=== PATIENT | male | born 1965 | race Hispanic/Latino ===

== ENCOUNTER 2017-01-20 10:54 | Day surgery (SDC) | payer MEDICARE, MEDICAID ==
[2017-01-09 10:52] VITALS: BMI 24.4
[2017-01-20] MEDS ORDERED: Propofol 10 mg/ml Inj (20 ML) ONE (13:13)
[2017-01-20] MEDS ORDERED: Midazolam 2 MG/2 ML VIAL ONE (13:14)
[2017-01-20] MEDS ORDERED: cefTRIAXone (Rocephin) 1 gm Inj ONE (13:17)
[2017-01-20] MEDS ORDERED: Lactated Ringer's 1,000 ML IV SCH (14:08)
[2017-01-20] MEDS ORDERED: HYDROmorphone 0.5 mg/0.5 ml ISec IVP PRN (14:08)
[2017-01-20] MEDS ORDERED: Dextrose 5%/0.45% NS 1,000 ML IV SCH (14:15)
[2017-01-20 17:50] VITALS: PULSE 81; RESP 20
[2017-01-20] MEDS ORDERED: ILOPERIDONE 8 MG PO SCH ×4 (18:00→21:45)
--- NOTE | 2017-01-20 18:40 | OP ---
PROCEDURE DATE: 01/20/2017 PREOPERATIVE DIAGNOSIS: Bladder tumor. POSTOPERATIVE DIAGNOSIS: Bladder tumor. PROCEDURE: Transurethral resection of bladder tumor. SURGEON: Mode Mccarty M.D. ANESTHESIA: LMA. DESCRIPTION OF OPERATION: After adequate LMA anesthesia was given, the patient was placed in lithoto my, prepped and draped in usual manner. A 22-Swedish cystoscope was initially introduced under direct vision. The patient had a previous radical prostatectomy. The bladder itself showed a broad based tumor that appeared high grade on the floor of the bladder on the left side over the trigone and not attached to the bladder neck. There was bullous inflammation around its base as well. It extended o lev a 5 cm area. I replaced a 22-Swedish cystoscope with a 26-Swedish continuous flow resectoscope and I resected the tumor, but not in its entirety since it appeared to be deeply invasive and was not am enable to complete resection, but I felt I had removed enough of it to get an adequate diagnostic spe cimen. The area resected was over 5 cm. It was vascular. All hemostasis was controlled. I could n ot see the left orifice; however, there was no hydronephrosis on the CAT scan. The right orifice was normal. The rest of the bladder looked normal. The chips were removed. Again, hemostasis was seen to be obtained with no evidence of irrigation running. The irrigant return was crystal clear. The resectoscope was removed and a 22 Swedish 3-way [place] was inserted with the through and through return ing being crystal clear. The patient was awakened and brought to recovery room in good condition. Mode Mccarty MD cc: [id number] TT: 01/20/2017 18:39:39 sd
[2017-01-21 09:23] VITALS: BP 126/81; TEMP 97.6; O2SAT 96
--- NOTE | 2017-03-14 10:44 | PN ---
POSTOPERATIVE NOTE DATE: 01/21/2017 The patient underwent a TUR of a bladder tumor. He will be discharged. We will follow up in the office for discussion of the pathology. He was given all his postop instructions. Mode Mccarty MD
== END 2017-01-21 12:36 | disposition home or self-care (01) ==
LOC: SDS 10:54 → 5RSO 15:20 → SDS 01-21 12:36
PROVIDERS: ATTEND Urology
DX: C67.9 Malignant neoplasm of bladder, unspecified (principal)
CPT/HCPCS: 52235; 88307; J0696; J1170; J1885; J2250; J2405; J2704; J3010; J7042; J7120 ×2

== ENCOUNTER 2017-05-28 16:08 | Inpatient (IN) | payer MEDICARE, MEDICAID ==
[2017-05-28 16:18] VITALS: BMI 21.2
[2017-05-28] MEDS ORDERED: Sodium Chloride 0.9% 500 ML IV STA (16:41)
--- NOTE | 2017-05-28 16:53 | RAD ---
HISTORY: abdominal pain COMPARISON: 03/04/2017 FINDINGS: LUNGS: No active pulmonary disease. PLEURA: No significant pleural effusion identified, no pneumothorax apparent. CARDIOVASCULAR: Normal. OSSEOUS STRUCTURES: No significant abnormalities. VISUALIZED UPPER ABDOMEN: Normal. OTHER FINDINGS: None. IMPRESSION: No active disease.
--- NOTE | 2017-05-28 17:10 | ED PDOC ---
"Arrival/HPI - General Chief Complaint: Abdominal Pain Time Seen by Provider: 05/28/17 16:23 Historian: Patient, Parent - History of Present Illness Narrative History of Present Illness (Text): 05/28/17 17:02 51yr old male presents today with a 1 week history of constipation and a 2 day history of achy abdominal pain. pt denies fever/chills. no cp or sob. pt with recent hx of 2 abdominal surgeries. pt with hx of prostate CA. pt has been taking miralax without being able to have bowel movement. pt sent in by GI (dr. thomas) for evaluation to r/o obstruction. Time/Duration: 1 week Symptom Onset: Gradual Symptom Course: Worsening Quality: Aching Past Medical History - Provider Review Nursing Documentation Reviewed: Yes - Travel History Have you recently traveled outside [place] w/in the past 3 mons?: No - Infectious Disease Hx of Infectious Diseases: None - Tetanus Immunization Tetanus Immunization: Unknown - Past Medical History Past Medical History: No Previous - Cardiac Hx Pacemaker: No - Pulmonary Hx Respiratory Disorders: No - Neurological Hx Paralysis: No - HEENT Hx HEENT Disorder: No - Renal Hx Renal Disorder: No - Endocrine/Metabolic Hx Endocrine Disorders: No - Hematological/Oncological Hx Blood Transfusions: No Hx Blood Transfusion Reaction: No - Integumentary Hx Dermatological Disorder: No - Musculoskeletal/Rheumatological Hx Musculoskeletal Disorders: No - Gastrointestinal Hx Gall Bladder Disease: Yes (s/p cholecystectomy) Hx Gastroesophageal Reflux: Yes - Genitourinary/Gynecological Hx Genitourinary Disorders: No Hx Reproductive Disorders: No - Psychiatric Hx Depression: Yes Hx Emotional Abuse: No Hx Physical Abuse: No Hx Substance Use: No - Surgical History Hx Cholecystectomy: Yes - Anesthesia Hx Anesthesia: Yes Hx Anesthesia Reactions: No Hx Malignant Hyperthermia: No - Suicidal Assessment Feels Threatened In Home Enviroment: No Family/Social History - Physician Review Nursing Documentation Reviewed: Yes Family/Social History: Unknown Family HX Smoking Status: Never Smoked Hx Alcohol Use: No Hx Substance Use: No Hx Substance Use Treatment: No Allergies/Home Meds Allergies/Adverse Reactions: Allergies No Known Allergies Allergy (Verified 11/19/12 15:29) Home Medications: Home Meds Medication Instructions Recorded Confirmed Sertraline [Zoloft] 100 mg PO BID 11/19/12 05/28/17 cloZAPine [Clozaril] 300 mg PO HS 01/09/17 05/28/17 Review of Systems - Review of Systems Constitutional: absent: Fatigue, Fevers Respiratory: absent: SOB, Cough Cardiovascular: absent: Chest Pain, Palpitations Gastrointestinal: Abdominal Pain, Constipation. absent: Diarrhea, Nausea, Vomiting Genitourinary Male: absent: Urinary Output Changes Musculoskeletal: absent: Arthralgias, Back Pain, Neck Pain Skin: absent: Rash, Pruritis Neurological: absent: Headache, Dizziness Psychiatric: absent: Anxiety, Depression Physical Exam Vital Signs Reviewed: Yes Vital Signs Temp Pulse Resp BP Pulse Ox 05/28/17 21:51 94 H 18 126/45 L 96 05/28/17 16:21 97.6 F 99 H 18 109/72 97 Temperature: Afebrile Blood Pressure: Normal Pulse: Regular Respiratory Rate: Normal Appearance: Positive for: Well-Appearing, Non-Toxic, Comfortable Pain Distress: None Mental Status: Positive for: Alert and Oriented X 3 - Systems Exam Head: Present: Atraumatic Mouth: Present: Moist Mucous Membranes Neck: Present: Normal Range of Motion Respiratory/Chest: Present: Clear to Auscultation, Good Air Exchange. No: Respiratory Distress, Accessory Muscle Use Cardiovascular: Present: Regular Rate and Rhythm Abdomen: Present: Tenderness, Normal Bowel Sounds, Ostomy Tubes (urostomy), Scars. No: Peritoneal Signs, Rebound, Guarding Back: Present: Normal Inspection. No: CVA Tenderness Neurological: Present: GCS=15 Skin: Present: Warm, Dry, Normal Color. No: Rashes Psychiatric: Present: Alert, Oriented x 3 Medical Decision Making ED Course and Treatment: 05/28/17 17:13 Patient is nontoxic well appearing with stable vital signs presenting with abdominal pain and constipation CBC wnl CMP wnl Urinalysis trace blood CAT scanFINDINGS: LOWER THORAX: No infiltrate seen in the lung bases. ABDOMEN: LIVER: Multiple scattered, small low density liver lesions are seen, the largest of which measures 10 mm. These could represent multiple cysts, however, they are too small to characterize on this exam. GALLBLADDER AND BILE DUCTS: Although there is a reported history of cholecystectomy, the gallbladder is seen, and is within normal limits in appearance. No evidence of significant biliary ductal dilatation. PANCREAS: No CT evidence of acute pancreatitis. SPLEEN: No acute abnormality of the spleen identified. LOKI ROMERO | Final Radiology Report Page 2 of 3 ADRENALS: Stable appearance of an indeterminate, solid-appearing left adrenal mass, measuring 3.5 cm, and having well-defined margins. KIDNEYS AND URETERS: Moderate left hydronephrosis, with no evidence of significant hydroureter, obstructing stones, or a delayed left nephrogram. This is of uncertain etiology. Incidental fluid density bilateral renal lesions, measuring less than 10 mm. No further followup imaging is recommended for incidental lesions of this size, unless otherwise clinically indicated. STOMACH AND BOWEL: Proximal sigmoid colon is diffusely stool-filled, and is moderately dilated. Its wall is mildly thickened. There is infiltration of the adjacent fat. There is a small amount of nearby free fluid. Findings are suspicious for stercoral colitis. The remainder of the colon and is also filled with stool, and mildly, diffusely dilated dilated. Best seen on images 72-95 series 602, there is focal asymmetric wall thickening of the sigmoid colon,, causing mild narrowing of the colon. This is located just distal to the dilated and stool-filled sigmoid colon. Findings are suspicious for a stricture of the colon, causing an incomplete colonic obstruction dilatation. There is no evidence of a complete colonic obstruction. There is air and stool seen distal to the suspected stricture. Ileostomy is seen in the right anterior abdominal wall. Otherwise, no significant abnormality of the bowel is identified. No evidence of small bowel obstruction. APPENDIX: Normal appendix is not seen, however, there are no significant inflammatory changes visualized in the expected location of the appendix to suggest appendicitis. Recommend clinical correlation. PELVIS: BLADDER: Bladder is surgically absent. REPRODUCTIVE: No acute abnormality of the reproductive organs is seen. ABDOMEN and PELVIS: INTRAPERITONEAL SPACE: Small to moderate amount of pelvic free fluid. Ileal conduit is seen in the upper pelvis. No evidence of free air. No evidence of free air. BONES/JOINTS: No acute fractures or other acute bony abnormality noted. SOFT TISSUES: Bilateral gynecomastia. Post operative scarring involving the anterior abdominal and pelvic wall, most likely secondary to previous hernia repair. VASCULATURE: No evidence of abdominal aortic aneurysm. No evidence of periaortic hemorrhage. LYMPH NODES: No evidence of diffuse lymphadenopathy. IMPRESSION: - Findings suspicious for a stricture of the sigmoid colon, causing an incomplete colonic obstruction, complicated by stercoral colitis of the sigmoid colon. Neoplasm of the colon, including a metastatic colonic implant, is not excluded. Further workup is recommended. - Pelvic free fluid. - Moderate left hydronephrosis, cause not identified. - Otherwise, no evidence of significant acute process. - Evidence of prior cystectomy and ileal conduit formation, and ileostomy. - 3.5 cm left adrenal lesion. This is indeterminate on this exam, but appears stable from a 01/05/2017 CT. - Multiple small liver lesions, possibly cysts, but too small to characterize on this exam. - See above for remaining findings. blood cultures pending pt started on vanco and zosyn 05/28/17 22:[address] abraham; she would like dr. Colón for surgery. case discussed with dr. higgins and dr. Colón in depth; discussed ct findings of stercoral colitis and colonic stricture and incomplete obstruction. dr. Colón at bedside evaluating patient. Patient reassessment: pt resting comfortably in er. Discussed all results with patient and family in depth. Impression: stercoral colitis, stricture of colon, colonic obstruction admit to med/surg with surgical consult. dr. colón. - Lab Interpretations Lab Results: 05/28/17 17:10 05/28/17 17:10 Lab Results 05/28/17 22:15: Blood Type Pending, Antibody Screen Pending, BBK History Checked No verified bt 05/28/17 22:15: PT 11.4, INR 1.06, APTT 26.2 05/28/17 21:42: Urine Color Yellow, Urine Appearance Clear, Urine pH 7.0, Ur Specific Emerson 1.010, Urine Protein Negative, Urine Glucose (UA) Negative, Urine Ketones Negative, Urine Blood Trace-intact H, Urine Nitrate Negative, Urine Bilirubin Negative, Urine Urobilinogen 0.2, Ur Leukocyte Esterase Negative , Urine RBC 0 - 2, Urine WBC 2 - 5, Urine Bacteria Trace 05/28/17 17:10: WBC 7.9, RBC 4.62, Hgb 13.8 L, Hct 40.7 L, MCV 88.1, MCH 29.9, MCHC 33.9, RDW 15.0 H, Plt Count 282, MPV 8.7, Gran % 73.7 H, Lymph % (Auto) 16.6 L, [place] % (Auto) 7.0 H, Eos % (Auto) 2.4, Baso % (Auto) 0.3, Gran # 5.82, Lymph # 1.3, [place] # 0.6, Eos # 0.2, Baso # 0.02 05/28/17 17:10: Sodium 144, Potassium 4.3, Chloride 109 H, Carbon Dioxide 25, Anion Gap 14, BUN 21, Creatinine 0.7, Est GFR ( Amer) > 60, Est GFR (Non- Af Amer) > 60, Random Glucose 89, Calcium 9.3, Total Bilirubin 0.5, AST 22, ALT 25, Alkaline Phosphatase 83, Total Protein 6.5, Albumin 4.0, Globulin 2.5, Albumin/Globulin Ratio 1.6, Lipase 47 - RAD Interpretation Radiology Orders: 05/28/17 16:41 CHEST PORTABLE [RAD] Stat 05/28/17 16:45 ABD PELVIS PO & IV CONTRAST [CT] Stat - Medication Orders Current Medication Orders: Acetaminophen (Tylenol 325mg Tab) 650 mg PO Q6H PRN PRN Reason: Fever >100.4 F Sodium Chloride (Sodium Chloride 0.9%) 1,000 mls @ 100 mls/hr IV .Q10H SUNNY Last Admin: 05/29/17 00:44 Dose: 100 mls/hr eMAR Start Stop Document 05/29/17 00:44 PCO (Rec: 05/29/17 00:44 PCO [id number]) Intravenous Solution Start Date 05/29/17 Start Time 00:44 End Date 05/29/17 End time 11:00 Total Infusion Time 616 Mineral Oil (Fleet Mineral Oil Enema) 135 ml RC Q8H SUNNY Stop: 05/29/17 13:01 Discontinued Medications Glycerin (Glycerin Adult Suppository) 1 sup RC ONCE ONE Stop: 05/29/17 00:47 Sodium Chloride (Sodium Chloride 0.9%) 500 mls @ 999 mls/hr IV .Q31M STA Stop: 05/28/17 17:11 Last Admin: 05/28/17 17:22 Dose: 999 mls/hr eMAR Start Stop Document 05/28/17 17:22 EQ (Rec: 05/28/17 17:23 EQ [id number]) Intravenous Solution Start Date 05/28/17 Start Time 17:23 Vancomycin HCl (Vancomycin 1gm) 1 gm in 250 mls @ 167 mls/hr IVPB STAT STA PRN Reason: Protocol Stop: 05/28/17 23:27 Last Admin: 05/28/17 22:30 Dose: 167 mls/hr eMAR Start Stop Document 05/28/17 22:30 JOL (Rec: 05/29/17 00:23 [id number] Intravenous Solution Start Date 05/28/17 Start Time 22:30 End Date 05/29/17 End time 00:01 Total Infusion Time 91 Piperacillin Sod/Tazobactam Sod (Zosyn 3.375 In Ns 100ml) 100 mls @ 200 mls/hr IVPB STAT STA PRN Reason: Protocol Stop: 05/28/17 22:27 Last Admin: 05/28/17 22:20 Dose: 200 mls/hr eMAR Start Stop Document 05/28/17 22:20 JOL (Rec: 05/28/17 22:20 [id number] Intravenous Solution Start Date 05/28/17 Start Time 22:20 End Date 05/28/17 End time 22:50 Total Infusion Time 30 Disposition/Present on Arrival - Present on Arrival Any Indicators Present on Arrival: No History of DVT/PE: No History of Uncontrolled Diabetes: No Urinary Catheter: No History of Decub. Ulcer: No History Surgical Site Infection Following: None - Disposition Have Diagnosis and Disposition been Completed?: Yes Diagnosis: Colonic stricture, Colitis, Colonic obstruction Disposition: HOSPITALIZED Disposition Time: 22:00 Patient Plan: Admission Patient Problems: Current Active Problems Problem Status Onset Colitis Acute Colonic obstruction Acute Colonic stricture Acute Condition: FAIR"
[2017-05-28 17:24] LABS: BASO # 0.02 K/mm3 (0.0-2.0); BASO % 0.3 % (0.0-3.0); EOS # 0.2 (0.0-0.7); EOS % 2.4 % (1.5-5.0); GRAN # 5.82 (1.4-6.5); GRAN % 73.7 % (50.0-68.0); HEMATOCRIT 40.7 % (42.0-52.0); LYMPH # 1.3 (1.2-3.4); LYMPH % 16.6 % (22.0-35.0); MEAN CELL VOLUME 88.1 fl (80.0-105.0); MEAN CORPUSCULAR HEMOGLOBIN 29.9 pg (25.0-35.0); MEAN CORPUSCULAR HGB CONC 33.9 g/dl (31.0-37.0); MEAN PLATELET VOLUME 8.7 fl (7.0-11.0); MONO # 0.6 (0.1-0.6); WHITE BLOOD COUNT 7.9 10^3/ul (4.5-11.0)
[2017-05-28 17:32] LABS: ALB/GLOB RATIO 1.6 (1.1-1.8); ALKALINE PHOSPHATASE 83 U/L (38-126); ALT/SGPT 25 U/L (7-56); AST/SGOT 22 U/L (17-59); BILIRUBIN,TOTAL 0.5 mg/dL (0.2-1.3); BLOOD UREA NITROGEN 21 mg/dL (7-21); CALCIUM 9.3 mg/dL (8.4-10.5); CARBON DIOXIDE 25 mmol/L (21-33); CHLORIDE 109 mmol/L (98-107); GFR AFRICAN-AMERICAN > 60; GLUCOSE,RANDOM 89 mg/dL (70-110); LIPASE 47 U/L (23-300); POTASSIUM 4.3 mmol/L (3.6-5.0); SODIUM 144 mmol/L (132-148); TOTAL PROTEIN 6.5 g/dL (5.8-8.3)
[2017-05-28] MEDS ORDERED: Iohexol 240 (50 ml) ONE (17:35)
[2017-05-28] MEDS ORDERED: Iohexol 350 MG/100 ML VIAL ONE (20:09)
--- NOTE | 2017-05-28 21:55 | CT ---
EXAM: CT Abdomen and Pelvis With Intravenous Contrast EXAM DATE/TIME: 05/28/2017 4:45 PM CLINICAL HISTORY: 51 years old, male; Pain; Abdominal pain; Generalized; Prior surgery; Surgery type: Cholecystectomy - small bowel SX - bladder SX TECHNIQUE: Axial computed tomography images of the abdomen and pelvis with intravenous contrast. All CT scans at this facility use one or more dose reduction techniques, viz.: automated exposure control; ma/kV adjustment per patient size (including targeted exams where dose is matched to indication; i.e. head); or iterative reconstruction technique. Coronal and sagittal reformatted images were created and reviewed. CONTRAST: 93 mL of OMNI 350 administered intravenously. COMPARISON: Prior CT abdomen and pelvis of 01/05/2017 FINDINGS: LOWER THORAX: No infiltrate seen in the lung bases. ABDOMEN: LIVER: Multiple scattered, small low density liver lesions are seen, the largest of which measures 10 mm. These could represent multiple cysts, however, they are too small to characterize on this exam. GALLBLADDER AND BILE DUCTS: Although there is a reported history of cholecystectomy, the gallbladder is seen, and is within normal limits in appearance. No evidence of significant biliary ductal dilatation. PANCREAS: No CT evidence of acute pancreatitis. SPLEEN: No acute abnormality of the spleen identified. ADRENALS: Stable appearance of an indeterminate, solid-appearing left adrenal mass, measuring 3.5 cm, and having well-defined margins. KIDNEYS AND URETERS: Moderate left hydronephrosis, with no evidence of significant hydroureter, obstructing stones, or a delayed left nephrogram. This is of uncertain etiology. Incidental fluid density bilateral renal lesions, measuring less than 10 mm. No further followup imaging is recommended for incidental lesions of this size, unless otherwise clinically indicated. STOMACH AND BOWEL: Proximal sigmoid colon is diffusely stool-filled, and is moderately dilated. Its wall is mildly thickened. There is infiltration of the adjacent fat. There is a small amount of nearby free fluid. Findings are suspicious for stercoral colitis. The remainder of the colon and is also filled with stool, and mildly, diffusely dilated dilated. Best seen on images 72-95 series 602, there is focal asymmetric wall thickening of the sigmoid colon,, causing mild narrowing of the colon. This is located just distal to the dilated and stool-filled sigmoid colon. Findings are suspicious for a stricture of the colon, causing an incomplete colonic obstruction dilatation. There is no evidence of a complete colonic obstruction. There is air and stool seen distal to the suspected stricture. Ileostomy is seen in the right anterior abdominal wall. Otherwise, no significant abnormality of the bowel is identified. No evidence of small bowel obstruction. APPENDIX: Normal appendix is not seen, however, there are no significant inflammatory changes visualized in the expected location of the appendix to suggest appendicitis. Recommend clinical correlation. PELVIS: BLADDER: Bladder is surgically absent. REPRODUCTIVE: No acute abnormality of the reproductive organs is seen. ABDOMEN and PELVIS: INTRAPERITONEAL SPACE: Small to moderate amount of pelvic free fluid. Ileal conduit is seen in the upper pelvis. No evidence of free air. No evidence of free air. BONES/JOINTS: No acute fractures or other acute bony abnormality noted. SOFT TISSUES: Bilateral gynecomastia. Post operative scarring involving the anterior abdominal and pelvic wall, most likely secondary to previous hernia repair. VASCULATURE: No evidence of abdominal aortic aneurysm. No evidence of periaortic hemorrhage. LYMPH NODES: No evidence of diffuse lymphadenopathy. IMPRESSION: - Findings suspicious for a stricture of the sigmoid colon, causing an incomplete colonic obstruction, complicated by stercoral colitis of the sigmoid colon. Neoplasm of the colon, including a metastatic colonic implant, is not excluded. Further workup is recommended. - Pelvic free fluid. - Moderate left hydronephrosis, cause not identified. - Otherwise, no evidence of significant acute process. - Evidence of prior cystectomy and ileal conduit formation, and ileostomy. - 3.5 cm left adrenal lesion. This is indeterminate on this exam, but appears stable from a 01/05/2017 CT. - Multiple small liver lesions, possibly cysts, but too small to characterize on this exam. - See above for remaining findings.
[2017-05-28] MEDS ORDERED: Vancomycin 1gm in NS 250ml 1 GM/250 ML BAG IVPB STA (21:58)
[2017-05-28] MEDS ORDERED: Piperacillin/Tazobact 3.375 gm 100 ML IVPB STA (21:58)
[2017-05-28 22:00] LABS: URINE BILIRUBIN NEGATIVE (NEGATIVE); URINE BLOOD TRACE-INTACT (NEGATIVE); URINE GLUCOSE (UA) NEGATIVE (NEGATIVE); URINE KETONE NEGATIVE (NEGATIVE); URINE LEUKOCYTE ESTERASE NEGATIVE Leu/uL (NEGATIVE); URINE PROTEIN NEGATIVE mg/dL (<30 mg/dL); URINE UROBILINOGEN 0.2 E.U./dL (<1 E.U./dL)
[2017-05-28 22:01] LABS: URINE APPEARANCE CLEAR (CLEAR); URINE COLOR YELLOW (YELLOW)
[2017-05-28 22:09] LABS: URINE BACTERIA TRACE (NEG); URINE RBC 0 - 2 /hpf (0-2)
[2017-05-28 22:41] LABS: INR 1.06 (0.93-1.08); PARTIAL THROMBOPLASTIN TIME 26.2 Seconds (23.7-30.8)
[2017-05-29] MEDS: Sodium Chloride 0.9% 1,000 ML IV SCH ×3 (00:44→21:50)
--- NOTE | 2017-05-29 00:59 | CP.PCM.CON ---
History of Present Illness - History of Present Illness History of Present Illness: 51M w/ a PMHx of prostate cancer, urinary bladder cancer, GERD, presents to the ED with complaints of constipation. Patient reports he has not had a bowel movement for the past week. As per patient, he deals with constipation on a regular basis, however, he usually has BM after aggressive laxative use. Patient states his PO laxatives were not making him have a BM and he began feeling some distension as well as LLQ tenderness and he decided to come to ED. At time of examination patient appeared comfortable and denied fever/chills, n/v /d. Patient reports passing flatus. Complains of LLQ discomfort. Patient manually disimpacted at bedside. Urostomy appears intact and functional. 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 1 week s/p urinary bladder resection (2017) Allergies: NKDA Soc Hx: Denies EtOH use, denies smoking Review of Systems - Review of Systems Review of Systems: 12 pt ROS reviewed, unremarkable, except as stated in HPI Past Patient History - Infectious Disease Hx of Infectious Diseases: None - Tetanus Immunizations Tetanus Immunization: Unknown - Past Social History Smoking Status: Never Smoked - CARDIAC Hx Pacemaker: No - PULMONARY Hx Respiratory Disorders: No - NEUROLOGICAL Hx Paralysis: No - HEENT Hx HEENT Problems: No - RENAL Hx Chronic Kidney Disease: No - ENDOCRINE/METABOLIC Hx Endocrine Disorders: No - HEMATOLOGICAL/ONCOLOGICAL Hx Blood Transfusions: No Hx Blood Transfusion Reaction: No - INTEGUMENTARY Hx Dermatological Problems: No - MUSCULOSKELETAL/RHEUMATOLOGICAL Hx Musculoskeletal Disorders: No - GASTROINTESTINAL Hx Gall Bladder Disease: Yes (s/p cholecystectomy) Hx Gastroesophageal Reflux: Yes - GENITOURINARY/GYNECOLOGICAL Hx Genitourinary Disorders: No Hx Reproductive Disorders: No - PSYCHIATRIC Hx Depression: Yes Hx Emotional Abuse: No Hx Physical Abuse: No Hx Substance Use: No - SURGICAL HISTORY Hx Cholecystectomy: Yes - ANESTHESIA Hx Anesthesia: Yes Hx Anesthesia Reactions: No Hx Malignant Hyperthermia: No Meds Allergies/Adverse Reactions: Allergies Allergy/AdvReac Type Severity Reaction Status Date / Time No Known Allergies Allergy Verified 11/19/12 15:29 - Medications Medications: Current Medications Acetaminophen (Tylenol 325mg Tab) 650 mg PO Q6H PRN PRN Reason: Fever >100.4 F Sodium Chloride (Sodium Chloride 0.9%) 1,000 mls @ 100 mls/hr IV .Q10H [facility] Last Admin: 05/29/17 00:44 Dose: 100 mls/hr Mineral Oil (Fleet Mineral Oil Enema) 135 ml RC Q8H [facility] Stop: 05/29/17 13:01 Physical Exam - Constitutional Appears: No Acute Distress - Head Exam Head Exam: NORMOCEPHALIC - Eye Exam Eye Exam: Normal appearance - ENT Exam ENT Exam: Mucous Membranes Moist - Respiratory Exam Respiratory Exam: NORMAL BREATHING PATTERN - Cardiovascular Exam Cardiovascular Exam: +S1, +S2 - GI/Abdominal Exam GI & Abdominal Exam: Distended, Soft, Tenderness. absent: Firm, Guarding Additional comments: LLQ tenderness - Neurological Exam Neurological exam: Alert, Oriented x3 - Psychiatric Exam Psychiatric exam: Normal Mood - Skin Skin Exam: Dry, Intact, Warm Results - Vital Signs Recent Vital Signs: Last Vital Signs Temp 97.6 F 05/28/17 16:21 Pulse 94 H 05/28/17 21:51 Resp 18 05/28/17 21:51 BP 126/45 L 05/28/17 21:51 Pulse Ox 96 05/28/17 21:51 - Labs Result Diagrams: 05/28/17 17:10 05/28/17 17:10 - Imaging and Cardiology CT scan - abdomen Status: Image reviewed by me Assessment & Plan - Assessment and Plan (Free Text) Assessment: 51M w/ severe constipation -Manual fecal disimpaction -Tap water enemas -Glycerin enemas -Serial abdominal exams -Monitor for BM -Monitor vitals -DVT ppx -D/w Dr. Jordan Joe PGY-2
[2017-05-29] MEDS: Mineral Oil Enema 135 ml RC SCH ×2 (06:09→14:09)
--- NOTE | 2017-05-29 16:41 | CP.PCM.CON ---
<Corinne Rand - Last Filed: 05/29/17 19:36> History of Present Illness - History of Present Illness History of Present Illness: Seen and examined a t bedside, earlier today, chart reviewed. Request for GI consult is for colon obstruction/sterocolitis/sigmoid stricture. HPI: This is a 51-year-old male with a past medical history of urinary bladder and prostate cancer, GERD, chronic constipation came to the emergency room with complaints of unable to have a bowel movement for the past week. The patient reports that after aggressive laxative treatment he usually has BM. The patient has been taking oral laxatives as no result. He complained of abdominal distention and left lower quadrant tenderness. The patient denies any nausea, vomiting, fever or chills. No reports of any overt GI bleed. The patient reports passing flatus. The patient has a right-sided urostomy which is draining yellow urine. The patient was disimpacted by surgery earlier this am. He was also given enemas/gylcerin and reports having bowel movement this morning, no blood noted. He was seen in our outpatient office about a week ago , he has been using Colace, MiraLAX and at one point taking magnesium citrate. Has loss colonoscopy was about 3 or 4 years ago he does not recall any acute findings. On admission he had a CT scan of abdomen and pelvis which reported sterocoral colitis, stricture in the sigmoid colon causing incomplete obstruction. 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 Allergies: No known drug allergies Medications: Reviewed as per MAR Family history: Noncontributory Social history: Denies tobacco use, EtOH or substance abuse Past Patient History - Infectious Disease Hx of Infectious Diseases: None - Tetanus Immunizations Tetanus Immunization: Unknown - Past Social History Smoking Status: Never Smoked - CARDIAC Hx Pacemaker: No - PULMONARY Hx Respiratory Disorders: No - NEUROLOGICAL Hx Paralysis: No - HEENT Hx HEENT Problems: No - RENAL Hx Chronic Kidney Disease: No - ENDOCRINE/METABOLIC Hx Endocrine Disorders: No - HEMATOLOGICAL/ONCOLOGICAL Hx Blood Transfusions: No Hx Blood Transfusion Reaction: No - INTEGUMENTARY Hx Dermatological Problems: No - MUSCULOSKELETAL/RHEUMATOLOGICAL Hx Musculoskeletal Disorders: No - GASTROINTESTINAL Hx Gall Bladder Disease: Yes (s/p cholecystectomy) Hx Gastroesophageal Reflux: Yes - GENITOURINARY/GYNECOLOGICAL Hx Genitourinary Disorders: No Hx Reproductive Disorders: No - PSYCHIATRIC Hx Depression: Yes Hx Emotional Abuse: No Hx Physical Abuse: No Hx Substance Use: No - SURGICAL HISTORY Hx Cholecystectomy: Yes - ANESTHESIA Hx Anesthesia: Yes Hx Anesthesia Reactions: No Hx Malignant Hyperthermia: No Meds Allergies/Adverse Reactions: Allergies Allergy/AdvReac Type Severity Reaction Status Date / Time No Known Allergies Allergy Verified 11/19/12 15:29 - Medications Medications: Current Medications Acetaminophen (Tylenol 325mg Tab) 650 mg PO Q6H PRN PRN Reason: Fever >100.4 F Sodium Chloride (Sodium Chloride 0.9%) 1,000 mls @ 100 mls/hr IV .Q10H [facility] Last Admin: 05/29/17 10:45 Dose: 100 mls/hr Mineral Oil (Fleet Mineral Oil Enema) 135 ml RC Q8H [facility] Stop: 05/29/17 13:01 Last Admin: 05/29/17 06:09 Dose: 135 ml Physical Exam - Constitutional Appears: No Acute Distress - Head Exam Head Exam: NORMOCEPHALIC - Eye Exam Eye Exam: Normal appearance. absent: Scleral icterus - ENT Exam ENT Exam: Mucous Membranes Moist - Neck Exam Neck exam: Positive for: Normal Inspection - Respiratory Exam Respiratory Exam: NORMAL BREATHING PATTERN. absent: Respiratory Distress - Cardiovascular Exam Cardiovascular Exam: +S1, +S2 - GI/Abdominal Exam GI & Abdominal Exam: Diminished Bowel Sounds, Soft, Tenderness (LLQ). absent: Distended, Guarding, Rebound Additional comments: right sided urostomy in place, drain yellow urine, nontender - Neurological Exam Neurological exam: Alert, Oriented x3 - Skin Skin Exam: Dry, Warm Results - Vital Signs Recent Vital Signs: Last Vital Signs Temp 97.7 F 05/29/17 07:55 Pulse 95 H 05/29/17 07:55 Resp 18 05/29/17 07:55 BP 126/80 05/29/17 07:55 Pulse Ox 98 05/29/17 07:55 - Labs Result Diagrams: 05/28/17 17:10 05/28/17 17:10 Labs: Laboratory Results - last 24 hr 05/29/17 00:20 Blood Type Confirm AB NEGATIVE Assessment & Plan - Assessment and Plan (Free Text) Assessment: Assessment: Colonic obstruction/Sterile colitis secondary to sigmoid stricture causing incomplete obstruction evident on ct scan. 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 Seen and discussed with Dr. Greene. ADDENDUM: Miralax BID <Marian Greene V - Last Filed: 05/29/17 23:44> Meds - Medications Medications: Current Medications Acetaminophen (Tylenol 325mg Tab) 650 mg PO Q6H PRN PRN Reason: Fever >100.4 F Home Med (Home Med) 1 unit PO DAILY [facility] Home Med (Home Med) 3 unit PO HS [facility] Last Admin: 05/29/17 21:51 Dose: 3 unit Sodium Chloride (Sodium Chloride 0.9%) 1,000 mls @ 100 mls/hr IV .Q10H [facility] Last Admin: 05/29/17 21:50 Dose: 100 mls/hr Pantoprazole Sodium (Protonix Ec Tab) 40 mg PO 0630 [facility] Polyethylene Glycol (Miralax) 17 gm PO BID [facility] Sertraline HCl (Zoloft) 100 mg PO Q12 [facility] Last Admin: 05/29/17 21:51 Dose: 100 mg Sucralfate (Carafate Tab) 1 gm PO BID [facility] Last Admin: 05/29/17 18:56 Dose: Not Given Results - Vital Signs Recent Vital Signs: Last Vital Signs Temp 98 F 05/29/17 16:00 Pulse 87 05/29/17 16:00 Resp 18 05/29/17 16:00 BP 111/72 05/29/17 16:00 Pulse Ox 100 05/29/17 16:00 - Labs Result Diagrams: 05/28/17 17:10 05/28/17 17:10 Labs: Laboratory Results - last 24 hr 05/29/17 00:20 Blood Type Confirm AB NEGATIVE Attending/Attestation - Attestation Notes (Text): p 05/29/17 23:44
[2017-05-29] MEDS: CLOZARIL 100 MG PO SCH (21:51)
[2017-05-30] MEDS: Pantoprazole 40 mg EC Tab PO SCH (06:24)
--- NOTE | 2017-05-30 08:27 | CP.PCM.PN ---
Subjective - Date & Time of Evaluation Date of Evaluation: 05/30/17 Time of Evaluation: 08:26 - Subjective Subjective: General Surgery Progress Note for Dr. Ortega Patient seen and examiend at bedside. No acute event overnight. Patient resting in bed comfortably. He states he had two BMs yesterday but still has mild pain in LLQ. Tolerating diet and ambulating without dfficulty. Denies fever/chills, cp, sob, n/v/d. Objective - Vital Signs/Intake and Output Vital Signs (last 24 hours): Temp Pulse Resp BP Pulse Ox 98.4 F 86 18 116/79 100 05/30/17 00:00 05/30/17 00:00 05/30/17 00:00 05/30/17 00:00 05/30/17 00:00 Intake and Output: 05/30/17 05/30/17 06:59 18:59 Intake Total 3060 Output Total 1725 Balance 1335 - Medications Medications: Current Medications Acetaminophen (Tylenol 325mg Tab) 650 mg PO Q6H PRN PRN Reason: Fever >100.4 F Home Med (Home Med) 1 unit PO DAILY [facility] Home Med (Home Med) 3 unit PO HS [facility] Last Admin: 05/29/17 21:51 Dose: 3 unit Sodium Chloride (Sodium Chloride 0.9%) 1,000 mls @ 100 mls/hr IV .Q10H [facility] Last Admin: 05/29/17 21:50 Dose: 100 mls/hr Pantoprazole Sodium (Protonix Ec Tab) 40 mg PO 0630 [facility] Last Admin: 05/30/17 06:24 Dose: 40 mg Polyethylene Glycol (Miralax) 17 gm PO BID [facility] Sertraline HCl (Zoloft) 100 mg PO Q12 [facility] Last Admin: 05/29/17 21:51 Dose: 100 mg Sucralfate (Carafate Tab) 1 gm PO BID [facility] Last Admin: 05/29/17 18:56 Dose: Not Given - Labs Labs: PT 11.4 Seconds (9.9-11.8) 05/28/17 22:15 INR 1.06 (0.93-1.08) 05/28/17 22:15 APTT 26.2 Seconds (23.7-30.8) 05/28/17 22:15 - Constitutional Appears: No Acute Distress - Head Exam Head Exam: ATRAUMATIC, NORMOCEPHALIC - Eye Exam Eye Exam: Normal appearance - ENT Exam ENT Exam: Mucous Membranes Moist - Respiratory Exam Respiratory Exam: NORMAL BREATHING PATTERN - Cardiovascular Exam Cardiovascular Exam: REGULAR RHYTHM - GI/Abdominal Exam GI & Abdominal Exam: Soft, Tenderness (LLQ). absent: Distended, Firm, Guarding , Rigid, Rebound - Extremities Exam Extremities Exam: Normal Capillary Refill - Neurological Exam Neurological Exam: Alert, Awake, Oriented x3 - Psychiatric Exam Psychiatric exam: Normal Affect, Normal Mood - Skin Skin Exam: Dry, Intact, Normal Color, Warm Assessment and Plan - Assessment and Plan (Free Text) Plan: 51 M with severe constipation -ADAT -Continue enemas PRN -Monitor for BM -No surgical intervention at this time -DASIA Lambert PGY1
[2017-05-30] MEDS ORDERED: POLYETHYLENE GLYCOL 3350 17 GM/Dose PACKET PO SCH (10:00)
[2017-05-30] MEDS: CLOZARIL 100 MG PO SCH ×2 (11:20→22:30)
[2017-05-30] MEDS: POLYETHYLENE GLYCOL 3350 17 GM/Dose PACKET PO SCH ×2 (11:49→19:07)
--- NOTE | 2017-05-30 13:53 | PN ---
SUBJECTIVE: The patient is a 51 years old, seen and examined, lying in bed. He states he had small bowel movement, does not have that left lower quadrant discomfort much. Tolerating clear liquid diet. PHYSICAL EXAMINATION: VITAL SIGNS: He is afebrile, pulse 86, respiration 18, blood pressure 120/80. LUNGS: Bilateral fair airflow. No rhonchi or crackle. HEART: S1 and S2 audible. ABDOMEN: Soft, nontender. No rebound. No guarding. NEUROLOGIC: He is awake and alert, able to communicate. GENITOURINARY: He has a little conduit that he is draining clear urine. No hematuria. ASSESSMENT AND PLAN: 1. Constipation secondary to sigmoid stricture. 2. History of carcinoma bladder, status post cystectomy and conduit formation. 3. History of partial small-bowel resection. PLAN: Currently, the patient is on clear liquid diet. He is getting laxative. He has history of depression, he will resume his medication as he is taking at home. Plan is to have flexible sigmoidoscopy done on Thursday. Charli Izquierdo MD
[2017-05-30] MEDS: Sodium Chloride 0.9% 1,000 ML IV SCH (16:36)
[2017-05-31] MEDS: Sodium Chloride 0.9% 1,000 ML IV SCH ×2 (04:19→14:04)
[2017-05-31] MEDS: Pantoprazole 40 mg EC Tab PO SCH (08:10)
[2017-05-31] MEDS: POLYETHYLENE GLYCOL 3350 17 GM/Dose PACKET PO SCH ×2 (11:05→18:08)
[2017-05-31] MEDS: CLOZARIL 100 MG PO SCH ×2 (11:05→21:41)
[2017-06-01] MEDS: Sodium Chloride 0.9% 1,000 ML IV SCH ×2 (00:57→14:29)
[2017-06-01] MEDS: Pantoprazole 40 mg EC Tab PO SCH (06:32)
--- NOTE | 2017-06-01 09:40 | CON ---
DATE: 05/31/2017 HISTORY OF PRESENT ILLNESS: Mr. Montgomery is 51-year-old male with urinary bladder cancer, muscle invasive, underwent resection of the bladder with ileal conduit. He underwent also small bowel resection secondary to malnutrition of the gut one week after surgery. The patient was admitted to the hospital with chronic constipation, inability to pass stools. CAT scan of the abdomen is suspicious for stricture of the sigmoid colon. 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 He had colonoscopy 3 years ago. He is currently on liquid diet, tolerating it well. PAST MEDICAL HISTORY: Bladder cancer, depression, chronic constipation, GERD. PAST SURGICAL HISTORY: Bladder resection, small bowel resection. ALLERGIES: NO KNOWN DRUG ALLERGIES. FAMILY HISTORY: Noncontributory. No positive history on mother or father. SOCIAL HISTORY: No history of alcohol abuse. No history of tobacco use. REVIEW OF SYSTEMS: As per HPI. Rest of 12-point review of systems reviewed negative. PHYSICAL EXAMINATION GENERAL: Comfortable in bed, in no acute distress. VITAL SIGNS: Temperature 97.7, heart rate 95 per minute, respiratory 18 per minute, blood pressure 126/80, pulse ox 98% on room air. HEENT: Normal. No lymphadenopathy. CHEST: Air entry present, equal bilateral. No added sound. CARDIOVASCULAR: Exam within normal limit. ABDOMEN: Soft, nontender. No hepatosplenomegaly. EXTREMITIES: No edema. CENTRAL NERVOUS SYSTEM: Alert and oriented x3. No focal sensory or motor deficits. SKIN: No petechiae. No rash. LABORATORY DATA: White count 7.9, hemoglobin 13.8, hematocrit 40.7, platelet count 282. Sodium 144, potassium 4.3, BUN 21, creatinine 0.7, glucose 89. ASSESSMENT AND PLAN: 1. Bladder cancer. 2. Sigmoid colon stricture. 3. Gastroesophageal reflux disease. 4. Chronic constipation. 5. Prostate cancer. PLAN: He is followed by Dr. Greene. He is currently on liquid diet, tolerating it well. He is schedule for sigmoidoscopy tomorrow. Blood culture is negative. Mild anemia. Hemoglobin and hematocrit is stable. Continue Protonix. Continue Zoloft. He is currently on IV fluid at 100 mL an hour. We will continue that. CAT scan as per HPI, reviewed. Thank you Dr. Izquierdo for allowing me to participate in his care. We will continue to follow. Mayi Barrera MD
[2017-06-01] MEDS: CLOZARIL 100 MG PO SCH ×2 (11:04→21:39)
[2017-06-01] MEDS ORDERED: Iohexol 240 (50 ml) ONE (11:28)
--- NOTE | 2017-06-01 13:07 | PN ---
DATE: SUBJECTIVE: The patient is a 51-year-old seen and examined. No significant abdominal pain, was n.p.o. to have Gastrografin enema. PHYSICAL EXAMINATION: VITAL SIGNS: He is afebrile, pulse 70, respirations 20, blood pressure 102/64. LUNGS: Bilateral fair airflow. No rhonchi or crackles. HEART: S1 and S2 audible. ABDOMEN: Soft, nontender. No rebound. No guarding. Slight discomfort in the left lower quadrant area, but no rebound or guarding. LABORATORY DATA: Blood sugar is 87, blood cultures are negative. ASSESSMENT: 1. Abdominal discomfort. 2. History of carcinoma of the bladder status post total cystectomy and conduit formation. 3. Sigmoid colon stricture. 4. Chronic constipation. 5. History of carcinoma of the prostate. PLAN: The patient will have enema done today, and Dr. Greene has scheduled for sigmoidoscopy tomorrow. We will keep on clear liquid diet in the meantime. Charli Izquierdo MD
--- NOTE | 2017-06-01 13:15 | RAD ---
PROCEDURE: Barium enema single contrast HISTORY: sigmoid stricture s/p cystectomy COMPARISON: TECHNIQUE: Water-soluble contrast was utilized as requested. FINDINGS: There is no evidence of a sigmoid stricture. Contrast flows without obstruction. Contrast extends to the region of the hepatic flexure. Contrast did not reach the cecum. The patient was experiencing discomfort in the lower abdomen. IMPRESSION: No evidence of sigmoid stricture.
[2017-06-01] MEDS: POLYETHYLENE GLYCOL 3350 17 GM/Dose PACKET PO SCH ×2 (14:23→18:05)
[2017-06-02] MEDS ORDERED: Magnesium Citrate Oral SOL (300 ml) PO ONE (05:00)
[2017-06-02] MEDS: Sodium Chloride 0.9% 1,000 ML IV SCH ×2 (05:48→15:49)
[2017-06-02 07:18] LABS: BASO # 0.02 K/mm3 (0.0-2.0); BASO % 0.4 % (0.0-3.0); EOS # 0.3 (0.0-0.7); EOS % 6.4 % (1.5-5.0); GRAN # 2.37 (1.4-6.5); GRAN % 52.7 % (50.0-68.0); HEMATOCRIT 37.7 % (42.0-52.0); LYMPH # 1.4 (1.2-3.4); LYMPH % 31.6 % (22.0-35.0); MEAN CELL VOLUME 88.1 fl (80.0-105.0); MEAN CORPUSCULAR HEMOGLOBIN 29.2 pg (25.0-35.0); MEAN CORPUSCULAR HGB CONC 33.2 g/dl (31.0-37.0); MEAN PLATELET VOLUME 8.7 fl (7.0-11.0); MONO # 0.4 (0.1-0.6); MONO % 8.9 % (1.0-6.0); RED CELL DISTRIBUTION WIDTH 14.5 % (11.5-14.5); WHITE BLOOD COUNT 4.5 10^3/ul (4.5-11.0)
[2017-06-02] MEDS ORDERED: Iohexol 240 (50 ml) ONE (08:15)
[2017-06-02 08:42] LABS: ALB/GLOB RATIO 1.6 (1.1-1.8); ALKALINE PHOSPHATASE 82 U/L (38-126); ALT/SGPT 24 U/L (7-56); AST/SGOT 27 U/L (17-59); BILIRUBIN,TOTAL 0.5 mg/dL (0.2-1.3); BLOOD UREA NITROGEN 5 mg/dL (7-21); CARBON DIOXIDE 25 mmol/L (21-33); CHLORIDE 111 mmol/L (98-107); GFR AFRICAN-AMERICAN > 60; GLUCOSE,RANDOM 106 mg/dL (70-110); MAGNESIUM 1.8 mg/dL (1.7-2.2); POTASSIUM 3.8 mmol/L (3.6-5.0); SODIUM 145 mmol/L (132-148); TOTAL PROTEIN 5.8 g/dL (5.8-8.3)
[2017-06-02] MEDS ORDERED: Propofol 10 mg/ml Inj (20 ML) ONE (10:49)
[2017-06-02] MEDS ORDERED: Lidocaine 2% Inj (20ml) ONE (10:58)
[2017-06-02] MEDS: POLYETHYLENE GLYCOL 3350 17 GM/Dose PACKET PO SCH ×2 (14:27→18:14)
[2017-06-02] MEDS: CLOZARIL 100 MG PO SCH ×2 (14:27→22:01)
[2017-06-02] MEDS: Pantoprazole 40 mg EC Tab PO SCH (14:28)
--- NOTE | 2017-06-02 16:24 | PN ---
SUBJECTIVE: The patient is a 51-year-old who was admitted with abdominal discomfort with history of chronic constipation. He was found to have sigmoid stricture, underwent Gastrografin enema yesterday that was negative for sigmoid stricture. The patient had sigmoidoscopy done today. PHYSICAL EXAMINATION: GENERAL: He is awake and alert, communicative. VITAL SIGNS: He is afebrile, pulse 80, respirations 16, blood pressure 133/79. LUNGS: Bilateral fair airflow. No rhonchi or crackle. HEART: S1 and S2 audible. ABDOMEN: Soft, nontender. No rebound. No guarding. NEUROLOGIC: He is awake and alert, able to communicate. LABORATORY EXAM: WBC is 4.5, hemoglobin 12.5, hematocrit 37, platelets 218. Chemistry: Sodium 145, potassium 3.8, chloride 111, CO2 of 25, BUN 5, creatinine 0.7, blood sugar of 140. ASSESSMENT AND PLAN: 1. Abdominal pain secondary to constipation. 2. Sigmoid stricture. 3. History of carcinoma of carcinoma of bladder and prostate, status post total cystectomy and conduit formation in [facility] earlier this year. PLAN: Probably diet will be advanced as per GI and we will continue him on IV fluid and once his diet is being advanced and he tolerates, we can make discharge plans. Charli Izquierdo MD
[2017-06-02 16:56] VITALS: O2SAT 100
[2017-06-03 08:04] VITALS: BP 115/76; PULSE 86; RESP 20; TEMP 97.6
--- NOTE | 2017-06-03 10:13 | CP.PCM.PN ---
Subjective - Date & Time of Evaluation Date of Evaluation: 06/03/17 Time of Evaluation: 08:00 - Subjective Subjective: Seen and examined at the bedside earlier this morning on the chart was reviewed. No acute overnight events put. Patient tolerating low soft residual diet, he had episode of loose stool, no reports of bleeding. He had a colonoscopy yesterday and found to have a redundant colon. Denies nausea, vomiting, or abdominal pain no fever or chills. Objective - Vital Signs/Intake and Output Vital Signs (last 24 hours): Temp Pulse Resp BP Pulse Ox 97.6 F 86 20 115/76 100 06/03/17 08:02 06/03/17 08:02 06/03/17 08:02 06/03/17 08:02 06/03/17 08:02 Intake and Output: 06/03/17 06/03/17 06:59 18:59 Intake Total 660 Output Total 1351 Balance -691 - Medications Medications: Current Medications Acetaminophen (Tylenol 325mg Tab) 650 mg PO Q6H PRN PRN Reason: Fever >100.4 F Home Med (Home Med) 1 unit PO DAILY [facility] Last Admin: 06/02/17 14:27 Dose: Not Given Home Med (Home Med) 3 unit PO HS [facility] Last Admin: 06/02/17 22:01 Dose: 3 unit Sodium Chloride (Sodium Chloride 0.9%) 1,000 mls @ 100 mls/hr IV .Q10H [facility] Last Admin: 06/02/17 15:49 Dose: 100 mls/hr Pantoprazole Sodium (Protonix Ec Tab) 40 mg PO 0630 [facility] Last Admin: 06/02/17 14:28 Dose: Not Given Polyethylene Glycol (Miralax) 17 gm PO BID [facility] Last Admin: 06/02/17 18:14 Dose: 17 gm Sertraline HCl (Zoloft) 100 mg PO Q12 [facility] Last Admin: 06/02/17 22:01 Dose: 100 mg Sucralfate (Carafate Tab) 1 gm PO BID [facility] Last Admin: 06/02/17 18:13 Dose: 1 gm - Labs Labs: 06/02/17 07:09 06/02/17 07:09 PT 11.4 Seconds (9.9-11.8) 05/28/17 22:15 INR 1.06 (0.93-1.08) 05/28/17 22:15 APTT 26.2 Seconds (23.7-30.8) 05/28/17 22:15 - Constitutional Appears: No Acute Distress - Head Exam Head Exam: NORMOCEPHALIC - Eye Exam Eye Exam: Normal appearance. absent: Scleral icterus - ENT Exam ENT Exam: Mucous Membranes Moist - Neck Exam Neck Exam: Normal Inspection - Respiratory Exam Respiratory Exam: Clear to Ausculation Bilateral, NORMAL BREATHING PATTERN. absent: Respiratory Distress - Cardiovascular Exam Cardiovascular Exam: +S1, +S2 - GI/Abdominal Exam GI & Abdominal Exam: Soft, Normal Bowel Sounds. absent: Guarding (COLONS B JASONas you know in with more swirled), Tenderness, Rebound - Extremities Exam Extremities Exam: Normal Capillary Refill. absent: Calf Tenderness, Pedal Edema - Neurological Exam Neurological Exam: Alert, Awake, Oriented x3 Assessment and Plan - Assessment and Plan (Free Text) Assessment: Assessment: Colonic obstruction/Sterile colitis secondary to sigmoid stricture causing incomplete obstruction evident on ct scan,status post barium enema, no evident of sigmoid stricture. Patient underwent colonoscopy found to have redundant colon and internal hemorrhoids. 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 Greene.
[2017-06-03] MEDS: CLOZARIL 100 MG PO SCH ×3 (10:18→11:28)
[2017-06-03] MEDS: POLYETHYLENE GLYCOL 3350 17 GM/Dose PACKET PO SCH (10:18)
[2017-06-03] MEDS: Sodium Chloride 0.9% 1,000 ML IV SCH (10:19)
--- NOTE | 2017-06-03 11:58 | CP.PCM.PN ---
Subjective - Date & Time of Evaluation Date of Evaluation: 06/03/17 Time of Evaluation: 06:45 - Subjective Subjective: General Surgery Progress Note for Dr. Ortega Patient seen and examined at bedside. Patient resting in bed. Patient states he is having bowel movements. Overnight, he had 2 episodes of bowl incontinence. Patient had colonoscopy yesterday which showed no mechanical obstruction, redundant colon and hemorrhoids. Patient has no other complaints today. Objective - Vital Signs/Intake and Output Vital Signs (last 24 hours): Temp Pulse Resp BP Pulse Ox 97.6 F 86 20 115/76 100 06/03/17 08:02 06/03/17 08:02 06/03/17 08:02 06/03/17 08:02 06/03/17 08:02 Intake and Output: 06/03/17 06/03/17 06:59 18:59 Intake Total 660 Output Total 1351 Balance -691 - Medications Medications: Current Medications Acetaminophen (Tylenol 325mg Tab) 650 mg PO Q6H PRN PRN Reason: Fever >100.4 F Home Med (Home Med) 1 unit PO DAILY [facility] Last Admin: 06/03/17 11:28 Dose: 1 unit Home Med (Home Med) 3 unit PO HS [facility] Last Admin: 06/02/17 22:01 Dose: 3 unit Sodium Chloride (Sodium Chloride 0.9%) 1,000 mls @ 100 mls/hr IV .Q10H [facility] Last Admin: 06/03/17 10:19 Dose: 100 mls/hr Pantoprazole Sodium (Protonix Ec Tab) 40 mg PO 0630 [facility] Last Admin: 06/02/17 14:28 Dose: Not Given Polyethylene Glycol (Miralax) 17 gm PO BID [facility] Last Admin: 06/03/17 10:18 Dose: Not Given Sertraline HCl (Zoloft) 100 mg PO Q12 [facility] Last Admin: 06/03/17 10:19 Dose: 100 mg Sucralfate (Carafate Tab) 1 gm PO BID [facility] Last Admin: 06/03/17 10:18 Dose: 1 gm - Labs Labs: 06/02/17 07:09 06/02/17 07:09 PT 11.4 Seconds (9.9-11.8) 05/28/17 22:15 INR 1.06 (0.93-1.08) 05/28/17 22:15 APTT 26.2 Seconds (23.7-30.8) 05/28/17 22:15 - Constitutional Appears: No Acute Distress - Head Exam Head Exam: ATRAUMATIC, NORMOCEPHALIC - Eye Exam Eye Exam: Normal appearance - ENT Exam ENT Exam: Mucous Membranes Moist - Respiratory Exam Respiratory Exam: NORMAL BREATHING PATTERN - Cardiovascular Exam Cardiovascular Exam: REGULAR RHYTHM - GI/Abdominal Exam GI & Abdominal Exam: Soft. absent: Distended, Firm, Guarding, Rigid, Tenderness , Rebound - Neurological Exam Neurological Exam: Alert, Awake, Oriented x3 - Psychiatric Exam Psychiatric exam: Normal Affect, Normal Mood - Skin Skin Exam: Dry, Intact, Normal Color, Warm Assessment and Plan - Assessment and Plan (Free Text) Plan: 51 M with constipation -Bowel regimen as per GI -Patient clear for DC from surgical standpoint -No surgical intervention at this time -DASIA Lambert PGY1
--- NOTE | 2017-06-03 20:52 | DS ---
HISTORY OF PRESENT ILLNESS: The patient is 51 years old male who was admitted with abdominal pain. He was found to have a sigmoid stricture on CT scan. The patient has Gastrografin barium enema done. There was no evidence of stricture. He underwent flex sig and was found to have redundant colon. PAST MEDICAL AND SURGICAL HISTORY: The patient has significant past medical history of; 1. Hypertension. 2. Depression. 3. History of CA bladder, CA prostate. He has total cystectomy done and ileal conduit formation. PHYSICAL EXAMINATION: GENERAL: On examination today, he is awake and alert, communicative. VITAL SIGNS: He is afebrile, pulse 86, respirations 20, blood pressure 115/76. LUNGS: Bilateral fair air flow. No rhonchi or crackle. HEART: S1 and S2 audible. ABDOMEN: Soft, nontender. No rebound, no guarding. NEUROLOGIC: The patient is awake and alert, communicative. LABORATORY DATA: He has a conduit and is draining clear urine. Blood sugar is 120. ASSESSMENT: 1. Abdominal pain secondary to constipation. 2. Redundant colon causing false sigmoid stricture. 3. Cancer prostate. 4. Cancer bladder, status post cystectomy and conduit formation. 5. Depression. PLAN: The patient is clinically stable. He will be discharged today. He is advised to take Linzess and Amitiza and MiraLax everyday to keep his bowels regular and he will resume his medication as prior to admission that includes omeprazole 40 mg daily, Clozaril 100 mg daily and 300 at bedtime, Zoloft 100 mg twice a day, metformin 500 daily and Carafate. The patient will follow with Dr. Enciso and Dr. Greene as outpatient. Charli Izquierdo MD
== END 2017-06-03 14:29 | disposition home or self-care (01) | DRG 389 ==
LOC: ED 16:08 → ERH 22:48 → 5RSO 05-29 00:35
PROVIDERS: ADMIT Internal Medicine; ATTEND Internal Medicine
PROC: 0DJD8ZZ Inspection of Lower Intestinal Tract, Via Natural or Artificial Opening Endoscopic (ICD-10-PCS; principal; 2017-06-02 09:00)
DX: K56.600 Partial intestinal obstruction, unspecified as to cause (principal); N13.30 Unspecified hydronephrosis; I10 Essential (primary) hypertension; K52.9 Noninfective gastroenteritis and colitis, unspecified; K63.89 Other specified diseases of intestine; K59.09 Other constipation; F32.9 Major depressive disorder, single episode, unspecified; K64.8 Other hemorrhoids; K21.9 Gastro-esophageal reflux disease without esophagitis; Z85.51 Personal history of malignant neoplasm of bladder; Z85.46 Personal history of malignant neoplasm of prostate

== ENCOUNTER 2017-10-27 08:16 | Day surgery (SDC) | payer MEDICARE, MEDICAID ==
[2017-10-27] MEDS ORDERED: Propofol 10 mg/ml Inj (20 ML) ONE ×2 (09:48→11:11)
[2017-10-27 11:46] VITALS: RESP 16
[2017-10-27] MEDS ORDERED: Lactated Ringer's 1,000 ML IV SCH (12:00)
[2017-10-27 12:37] VITALS: BP 149/80; PULSE 84; TEMP 98.2; O2SAT 100
== END 2017-10-27 13:40 | disposition home or self-care (01) ==
LOC: ENDO 08:16
PROVIDERS: ATTEND Internal Medicine Gastroenterology
DX: K21.0 Gastro-esophageal reflux disease with esophagitis (principal); K29.50 Unspecified chronic gastritis without bleeding; R63.4 Abnormal weight loss
CPT/HCPCS: 43239; 88305; 88312; 88342; J2001; J2704; J3010; J7040; J7120

== ENCOUNTER 2018-09-02 13:57 | Outpatient (CLI) | payer MEDICARE, MEDICAID | END 2018-09-02 13:58 | disposition home or self-care (01) | LOC: LAB 13:57 ==

== ENCOUNTER 2018-10-04 13:00 | Outpatient (CLI) | payer MEDICARE, MEDICAID | END 2018-10-04 13:01 | disposition home or self-care (01) | LOC: LAB 13:00 ==

== ENCOUNTER 2018-10-11 12:49 | Outpatient (CLI) | payer MEDICARE, MEDICAID | END 2018-10-11 12:50 | disposition home or self-care (01) | LOC: LAB 12:49 ==

== ENCOUNTER 2018-11-03 13:25 | Outpatient (CLI) | payer MEDICARE, MEDICAID | END 2018-11-03 13:26 | disposition home or self-care (01) | LOC: LAB 13:25 ==

== ENCOUNTER → 2018-12-07 | Outpatient (CLI) | payer MEDICARE, MEDICAID | LOC: LAB 12:15 ==

== ENCOUNTER 2019-01-06 13:26 | Outpatient (CLI) | payer MEDICARE, MEDICAID | END 2019-01-06 13:27 | disposition home or self-care (01) | LOC: LAB 13:26 ==